=== PATIENT | male | born 1990 | race Caucasian/White ===

== ENCOUNTER 2016-12-18 00:33 | Inpatient (IN) | payer OTHER ==
[~2016-12-18] VITALS: Ht 160 cm; Wt 63.6 kg
[2016-12-18 02:54] VITALS: BP 118/73; PULSE 78; RESP 18; TEMP 97.9; O2SAT 97
[2016-12-18] MEDS ORDERED: ALUMINUM/MAGNESIUM/SIMETH 30 ML CUP PO PRN (03:00)
[2016-12-18] MEDS ORDERED: LORazepam 1 MG TAB PO PRN (03:00)
[2016-12-18] MEDS ORDERED: BENZTROPINE MESYLATE 1 MG TAB PO PRN (03:00)
[2016-12-18] MEDS ORDERED: diphenhydrAMINE HCL 50 MG CAP - HS PRN PO (03:00)
[2016-12-18] MEDS ORDERED: LORazepam 2 MG/ML VIAL IM PRN (03:00)
[2016-12-18] MEDS ORDERED: MAGNESIUM HYDROXIDE SUSP 30 ML CUP PO PRN (03:00)
[2016-12-18] MEDS ORDERED: diphenhydrAMINE HCL 50 MG/ML VIAL - HS PRN IM (03:00)
[2016-12-18] MEDS ORDERED: ACETAMINOPHEN 325 MG TAB PO PRN (03:00)
[2016-12-18] MEDS ORDERED: BENZTROPINE MESYLATE 2 MG/2 ML VIAL IM PRN (03:00)
[2016-12-18 05:24] VITALS: BP 95/53; PULSE 65; RESP 18; TEMP 97.6
--- NOTE | 2016-12-18 13:12 | MH ---
cc: ESTELA GOOD MD DATE OF ADMISSION 12/18/2016 ADMISSION DIAGNOSES 1. Other psychotic disorder, F28. Rule out primary psychotic disorder like schizophrenia or schizoaffective disorder versus mood disorder such as bipolar disorder with psychotic features. LEGAL STATUS The patient is presently capacitated to consent for voluntary psychiatric admission and for medications. HISTORY OF PRESENT ILLNESS Mr. Pasquale Moran is a 26-year-old male with no reported past psychiatric history who presents to us in transfer under a [place] Act from [facility]. Reviewing the records from that hospital, the patient apparently presented there with concerns for paranoia, hallucinations and erratic behavior per his family. The patient was medically cleared and transferred to [facility]. Reviewing our electronic medical record, it appears this is the patient's first visit here. The patient is seen and examined with counselor. Chart reviewed. The case discussed with nurse on the inpatient psychiatric unit. On my examination today, the patient reports that he had onset of psychotic symptoms about four or five days ago with no clear trigger. He says that his sister "looked kind of funny. There is this girl that looks just like my sister. I was looking my sister and she sneezed and there was this red dragon that came out of her." He goes on later to say that he thinks that the red dragon was sort of cologne that might "attract people and you can put it on the skin to protect you." He endorses feelings of control saying "I feel like I am being hypnotized. People were doing stuff to figure out what I am thinking." He endorses poor sleep and trouble with irritability and anger. He says "I just started flipping out." He denies any suicidal or homicidal ideation. He says that he thought he saw his uncle in the backyard a few days, ago but it ended up being tree and he was talking to the tree. He also says that he thought that his backyard was being infiltrated by [employer] agents and drones. The patient is somewhat distractible, but there are no other real hypomanic or manic symptoms evident presently. The patient gives only a tenuous history than might be suggestive of such episodes in the past. No depressive symptoms. The remainder of the psychiatric ROS is negative. PAST PSYCHIATRIC HISTORY The patient denies any history of psychiatric diagnosis. He denies any history of inpatient or outpatient psychiatric treatment. He denies any history of suicide attempts but admits to suicidal ideation in the past. FAMILY HISTORY The patient reports that his cousin has schizophrenia. He also reports that his paternal uncle has alcohol issues. He denies any family history of suicide. CHEMICAL DEPENDENCY HISTORY The patient denies any history of abuse of drugs or alcohol. His toxicology at the outside hospital was negative. SOCIAL HISTORY The patient reports that he lives with his sister and sister's boyfriend. He did provide us with contact information for the sisters boyfriend in order to get a hold of the sister and that contact is Mukund Handy at [phone]. Sisters name is Coral. We did endeavor to call this number with the patient's permission, but no one unanswered. He reports that he is single with no children. Some college education. 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 He denies any legal history. Denies any access to guns or firearms. Denies any history. PAST MEDICAL HISTORY The patient denies any acute medical issues. He does say that he was recently treated with antibiotics for a throat infection. MEDICATIONS The patient reports he takes no medications presently. ALLERGIES NO KNOWN DRUG ALLERGIES. The patient is ALLERGIC TO SEAFOOD AND SHELLFISH. REVIEW OF SYSTEMS No reported headache, vision or hearing changes, chest pain, shortness of breath, bowel or bladder issues. No other somatic complaints. PHYSICAL EXAMINATION VITAL SIGNS: Temperature is 97.6, pulse is 65, respirations 18 and blood pressure is 95/53. Pulse oximetry is 97% on room air. Physical examination was completed at the outside hospital and the patient was medically cleared. On my examination today, the patient appears to be in no acute physical distress. No motoric abnormalities noted. LABORATORY DATA Laboratories from outside hospital reviewed. CBC is significant for mildly elevated hemoglobin at 18.8. CMP is essentially unremarkable. Alcohol level was undetectable. Urinalysis bland. Toxicology negative as I said. MENTAL STATUS EXAM The patient is casually dressed. He is fairly well-groomed. He is awake, alert and oriented to person and hospital at least. No abnormal motor movements noted. Speech is within normal limits for rate, tone and volume. Language and fund of knowledge seem average for age. Mood is described as somewhat irritable and affect is blunted. Thought process fairly linear within delusional system. There are paranoid delusions present and possibly also some degree grandiosity. The patient does describe some recent audiovisual hallucinations as detailed above. He denies any suicidal or homicidal ideation. Insight and judgment are likely fair. ASSESSMENT/PLAN This is a 26-year-old male with psychiatric history as detailed above who presents in transfer from outside hospital under a [place] Act. The patient describes recent onset of primarily psychotic symptoms. There may be some slight degree of mood overlay, but there is not no clear current symptomatology or clear history of natalie or hypomania. I will therefore treat as for psychosis. There is no evidence of substance component. The patient requires psychiatric admission at this time for safety, observation and stabilization. Admit inpatient. Voluntary status. I will initiate a low dose of an antipsychotic to try to manage the patient psychotic symptoms. We will need to obtain collateral to determine if this is the patient's first psychotic break, and if so, we may need to initiate a first break psychosis workup. In the meantime, I will provide Ativan as needed for anxiety, Cogentin as needed for EPS and Benadryl as needed for sleep. Vitals every shift. Counselor to see. Disposition planning. Estimated length of stay: Seven to nine days. Estela ZAMORA /12:09 PM /12:48 PM FATUMA
[2016-12-18] MEDS: risperiDONE 0.5 MG TAB PO SCH (20:42)
[2016-12-19 05:26] VITALS: BP 133/74; PULSE 82; RESP 18; TEMP 97.5; O2SAT 96
[2016-12-19] MEDS: risperiDONE 0.5 MG TAB PO SCH ×2 (08:52→20:25)
--- NOTE | 2016-12-19 17:31 | HHI.PYPN ---
Subjective Remarks Patient was seen and case discussed with nursing. Patient is pleasant and cooperative with exam. Describes bizarre behavior over the past couple of months. Examples include talking to trees, thinking that people outside his door or collaborating a conspiracy.'s, and that a red dragon was coming out of his sister. Thought process is mildly disorganized .He says the auditory hallucinations are gone. Denies paranoia. Denies suicidal ideations intent or plan Objective Alert: Yes [place]: Person, Place, Date, Situation Mood: Calm Affect: Restricted Memory Intact: Immediate Hallucinations: Auditory ("better") Delusions: No Delusion Type: Paranoid Suicidal: Ideation (denies) Homicidal: Ideation (denies) Insight/Judgement Poor Vitals/IOs Vital Signs Date Time Temp Pulse Resp B/P Pulse Ox O2 Delivery O2 Flow Rate FiO2 12/19/16 05:26 97.5 82 18 133/74 96 Intake and Output 12/18/16 12/18/16 12/19/16 08:00 16:00 00:00 Intake Total 480 ml Balance 480 ml Assessment & Plan Problem List: (1) Unspecified psychosis ICD Code: F29 Assessment & Plan Continue current treatment plan Justification for Cont. Inpt. Patient will decompensate in a less restrictive setting Ashok Isidro DO Dec 19, 2016 17:31
[2016-12-19 19:00] VITALS: BP 127/62; PULSE 83; RESP 18; TEMP 97.7; O2SAT 97
[2016-12-19] MEDS: NICOTINE 14 MG/24 HR PATCH TD SCH (20:26)
[2016-12-19] MEDS: REMOVE OLD NICODERM (NICOTINE) PATCH TD SCH (20:38)
[2016-12-20 06:18] VITALS: BP 149/70; PULSE 84; RESP 17; TEMP 98.5; O2SAT 97
[2016-12-20] MEDS: REMOVE OLD NICODERM (NICOTINE) PATCH TD SCH (09:05)
[2016-12-20] MEDS: risperiDONE 0.5 MG TAB PO SCH ×2 (09:05→20:30)
[2016-12-20] MEDS: NICOTINE 14 MG/24 HR PATCH TD SCH (09:05)
--- NOTE | 2016-12-20 16:38 | HHI.PYPN ---
Subjective Remarks Patient was seen and case discussed with nursing. Patient is pleasant and cooperative with exam. Seen interacting with others playing basketball outside. Nursing is noticed an improvement in patient's behavior. Patient denies auditory or visual hallucinations. Compliant with his medications. Denies suicidal ideations intent or plan Objective Alert: Yes [place]: Person, Place, Date, Situation Mood: Calm Affect: Restricted Memory Intact: Immediate Hallucinations: Auditory ("better") Delusions: No Delusion Type: Paranoid Suicidal: Ideation (denies) Homicidal: Ideation (denies) Insight/Judgement Poor Vitals/IOs Vital Signs Date Time Temp Pulse Resp B/P Pulse Ox O2 Delivery O2 Flow Rate FiO2 12/20/16 06:18 98.5 84 17 149/70 97 Assessment & Plan Problem List: (1) Unspecified psychosis ICD Code: F29 Assessment & Plan Continue current treatment plan Justification for Cont. Inpt. Patient will decompensate in a less restrictive setting Ashok Isidro DO Dec 20, 2016 16:38
[2016-12-20 18:26] VITALS: BP 120/60; PULSE 73; RESP 17; TEMP 98.4; O2SAT 98
[2016-12-21 05:49] VITALS: BP 125/69; PULSE 81; RESP 18; TEMP 98.6; O2SAT 98
[2016-12-21] MEDS: risperiDONE 0.5 MG TAB PO SCH (08:30)
[2016-12-21] MEDS: NICOTINE 14 MG/24 HR PATCH TD SCH (08:31)
--- NOTE | 2016-12-21 11:58 | HHI.PYPN ---
Subjective Remarks Patient seen and examined with counselor. Chart reviewed. Case discussed with nursing staff. On my examination today, the patient is in good spirits. He denies any ongoing audiovisual hallucinations. He denies any suicidal or homicidal ideation and notes that he is irritability feels decreased. Denies side effects from medications. Patient is hopeful to return to work once his psychiatric condition is improved. Review of Systems Other No physical complaints today Objective Alert: Yes [place]: Person, Place, Date, Situation Mood: Calm Affect: Euthymic Memory Intact: Comment (seems intact on clinical exam) Hallucinations: Other (denies any audiovisual hallucinations) Delusions: No Delusion Type: Other (no delusional material) Suicidal: Ideation (denies suicidal ideation) Homicidal: Ideation (denies homicidal ideation) Insight/Judgement Fair Remarks Thought process logical and linear. Speech within normal limits for rate, tone and volume. Labs Labs reviewed. No new labs. Vitals/IOs Vital Signs Date Time Temp Pulse Resp B/P Pulse Ox O2 Delivery O2 Flow Rate FiO2 12/21/16 05:49 98.6 81 18 125/69 98 Assessment & Plan Problem List: (1) Other psychotic disorder not due to a substance or known physiological condition ICD Code: F28 Assessment & Plan Titrate Risperdal to bring patient to a dose more likely to be therapeutic in the long run. Continue other medications and care as ordered. Justification for Cont. Inpt. Medication changes Discharge Planning Monitor overnight. Possible discharge tomorrow. Request HC Surrog/Guard Advoc?: No Shaggy Montiel MD Dec 21, 2016 11:58
[2016-12-21 18:44] VITALS: BP 124/78; PULSE 87; RESP 18; TEMP 98.5; O2SAT 97
[2016-12-21] MEDS: risperiDONE 1 MG TAB PO SCH (20:15)
[2016-12-21] MEDS: REMOVE OLD NICODERM (NICOTINE) PATCH TD SCH (20:25)
[2016-12-22 05:39] VITALS: BP 120/58; PULSE 80; RESP 16; TEMP 97.6; O2SAT 97
[2016-12-22] MEDS: NICOTINE 14 MG/24 HR PATCH TD SCH (09:00)
[2016-12-22] MEDS: REMOVE OLD NICODERM (NICOTINE) PATCH TD SCH (09:25)
[2016-12-22] MEDS: risperiDONE 1 MG TAB PO SCH (09:25)
[2016-12-22] MEDS ORDERED: RISP1 PO ×2 (09:59→11:37)
--- NOTE | 2016-12-22 10:00 | HHI.DS ---
Psychiatry Discharge Summary Inpatient Psychiatric care?: Yes Advance Directive: No Reason Not Provided: Due to Patient Condition Mental Health AdvanceDirective: No Health Care Proxy: No Admission Admission Date Dec 18, 2016 at 02:20 Admission Diagnosis: (1) Other psychotic disorder not due to a substance or known physiological condition ICD Code: F28 Brief History Mr. Pasquale Moran is a 26-year-old male with no reported past psychiatric history who presents to us in transfer under a [place] Act from [facility]. Reviewing the records from that hospital, the patient apparently presented there with concerns for paranoia, hallucinations and erratic behavior per his family. The patient was medically cleared and transferred to [place]. Reviewing our electronic medical record, it appears this is the patient's first visit here. The patient is seen and examined with counselor. Chart reviewed. The case discussed with nurse on the inpatient psychiatric unit. On my examination today, the patient reports that he had onset of psychotic symptoms about four or five days ago with no clear trigger. He says that his sister "looked kind of funny. There is this girl that looks just like my sister. I was looking my sister and she sneezed and there was this red dragon that came out of her." He goes on later to say that he thinks that the red dragon was sort of cologne that might "attract people and you can put it on the skin to protect you." He endorses feelings of control saying "I feel like I am being hypnotized. People were doing stuff to figure out what I am thinking." He endorses poor sleep and trouble with irritability and anger. He says "I just started flipping out." He denies any suicidal or homicidal ideation. He says that he thought he saw his uncle in the backyard a few days, ago but it ended up being tree and he was talking to the tree. He also says that he thought that his backyard was being infiltrated by [employer] agents and drones. The patient is somewhat distractible, but there are no other real hypomanic or manic symptoms evident presently. The patient gives only a tenuous history than might be suggestive of such episodes in the past. No depressive symptoms. The remainder of the psychiatric ROS is negative. Tobacco Use In Past 30 Days: Cigarettes But Not Daily Alcohol Use: Monthly or Less Hospital Course Patient was admitted to a locked, inpatient psychiatric unit. Appropriate precautions were in place throughout patient's hospital stay. Patient was seen and examined daily on the unit by psychiatry and also visited by counselor. Medications were adjusted. Patient tolerated medications well without side effects. Patient had improvement in his presenting psychiatric symptomatology and in particular improvement in his psychosis during the course of his hospital stay. There was no evidence of any suicidal or homicidal behavior on the inpatient psychiatric unit. Patient remained in good behavioral control generally and was medication compliant. On the day of discharge: Pt seen and examined in treatment team with RN, counselor and OT. Chart reviewed. Case discussed in treatment team. Per nursing staff, patient has been in good behavioral control and attending to basic needs. On my examination today, the patient is in good spirits. He requests discharge from the inpatient psychiatric unit. He is future oriented and anticipates looking for work in the near future. He denies any suicidal or homicidal ideation. No audiovisual hallucinations. I can elicit no delusional beliefs at this time. He denies side effects from medications. I do review the common and significant side effects of Risperdal including but not limited to sedation, increased blood sugar or cholesterol, weight gain, EPS and other movement side effects, gynecomastia. I did offer the patient long-acting injectable antipsychotic but he declined. He has no physical complaints today. 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 His level of function is adequate for outpatient care. Patient will be discharged today in stable condition with psychiatric follow-up as arranged by counselor. Patient is also to follow-up with primary care. I have counseled the patient regarding warning signs for need to return to the psychiatric emergency room as part of a general safety plan. Results Blood Pressure 120 / 58 Vital Signs Date Time Temp Pulse Resp B/P Pulse Ox O2 Delivery O2 Flow Rate FiO2 12/22/16 05:39 97.6 80 16 120/58 97 Laboratories were performed at outside hospital prior to transfer here. Please see my H&P. Summary of Procedures None done Imaging None done Pending results at discharge: No Medications # of Antipsychotic meds at D/C: 1 Approp Antipsych med options 1 - Minimum of three failed multiple trials of monotherapy. 2 - Documented plan to taper to monotherapy due to previous use of multiple meds OR cross-taper in progress at D/C. 3 - Documentation of augmentation of Clozapine. 4 - Justification other than those listed in allowable values 1-3, document here : Discharge Discharge Date: Dec 22, 2016 Discharge Diagnosis: (1) Other psychotic disorder not due to a substance or known physiological condition Diagnosis: Principal (Stabilized) ICD Code: F28 GAF on discharge is 60. Mental Status Exam at Disch Patient is casually dressed. He is well groomed. He is awake and alert and oriented 3. No abnormal motor movements noted. No hand tremor, no dystonia, no dyskinesia noted. Steady gait and station. Speech is within normal limits for rate, tone and volume. Language and fund of knowledge seem approximately average for age. Mood is good and affect is full and reactive. Thought process linear. No loosening of associations. No evident delusions. No audiovisual hallucinations. Denies suicidal or homicidal ideation. Insight and judgment are fair. Pt Condition on Discharge: Stable Discharge Disposition: Discharge Home Discharge Instructions Diet Instructions: As Tolerated, No Restrictions Activities you can perform: Weight Bearing as [place] Scheduled Appointment: Hardik Brennan Appointment Date: Dec 29, 2016 Appointment Time: 7:30am New Medications: Risperidone (Risperdal) 1 Mg Tab 1 MG PO BID Mental Health Days 15 Ref 1 TAB Discharge Time <= 30 minutes Discharge/Advance Care Plan Health Problems: (1) Other psychotic disorder not due to a substance or known physiological condition Goals to promote your health * To prevent worsening of your condition and complications * To maintain your health at the optimal level Directions to meet your goals Take your medications as prescribed Follow your dietary instruction Follow activity as directed Keep your appointments as scheduled Take your immunizations and boosters as scheduled If your symptoms worsen call your PCP, if no PCP go to Urgent Care Center or Emergency Room For 14/06 questions related to your inpatient stay or results of tests pending at discharge, please contact Dr. Shaggy Montiel at Smoking is Dangerous to Your Health. Avoid second hand smoking Shaggy Montiel MD Dec 22, 2016 10:00
== END 2016-12-22 17:15 | disposition home or self-care (01) | DRG 885 ==
LOC: H270 02:20
PROVIDERS: ADMIT Psychiatry & Neurology Psychiatry; ATTEND Psychiatry & Neurology Psychiatry
DX: F28 Other psychotic disorder not due to a substance or known physiological condition (principal); Z72.0 Tobacco use

== ENCOUNTER 2017-06-12 02:25 | Inpatient (IN) | payer OTHER ==
[~2017-06-12] VITALS: Ht 162.6 cm; Wt 60.4 kg
[~2017-06-12 02:25] MED LIST: RISP1 PO
[2017-06-12 02:38] VITALS: BP 133/74; PULSE 80; RESP 16; TEMP 98.1; O2SAT 100
[2017-06-12 03:16] LABS: BICARBONATE 22.2 MEQ/L (21.0-32.0); POTASSIUM 4.1 MEQ/L (3.5-5.1)
--- NOTE | 2017-06-12 03:48 | PD ---
HPI Chief Complaint: Psychiatric Symptoms Time Seen by Provider: 03:47 Travel History International Travel<30 days: No Contact w/Intl Traveler<30days: No Traveled to known affect area: No History of Present Illness HPI Patient transferred from [place] for psychiatric evaluation. Patient initially seen and evaluated there was medically cleared although creatinine was not rechecked prior to transfer after receiving 2 L normal saline. Patient denies any complaints or concerns. Denies any pain anywhere. Denies any homicidal or suicidal ideations. Denies any chest pain, shortness of breath, fevers, nausea , vomiting, abdominal pain, or generalized body aches. PFSH Past Medical History Asthma: Yes Psychiatric: No Social History Alcohol Use: Yes (OCC) Tobacco Use: Yes (OCC) Substance Use: Yes (MARIJUANA) Allergies-Medications (Allergen,Severity, Reaction): Coded Allergies: Seafood (Verified Allergy, Severe, 06/11/17) PER PATIENT Shellfish (Verified Allergy, Severe, 06/11/17) PER PATIENT Reported Meds & Prescriptions Reported Meds & Active Scripts Active No Active Prescriptions or Reported Medications Review of Systems Except as stated in HPI: all other systems reviewed are Neg Physical Exam Narrative GENERAL: Well-developed, well nourished, in no acute distress, and non-ill appearing. SKIN: Focused skin assessment warm and dry. HEAD: Atraumatic. Normocephalic. EYES: Pupils equal and round. EOMI. No scleral icterus. No injection or drainage. ENT: No nasal bleeding or discharge. Mucous membranes pink and moist. NECK: Trachea midline. Supple. No nuclear rigidity. CARDIOVASCULAR: Regular rate and rhythm. No murmur appreciated. RESPIRATORY: No accessory muscle use. No respiratory distress. Clear to auscultation. Breath sounds equal bilaterally. MUSCULOSKELETAL: No obvious deformities. No clubbing. No cyanosis. No edema. Full range of motion. NEUROLOGICAL: Awake and alert. No obvious cranial nerve deficits. Motor grossly within normal limits. Normal speech. PSYCHIATRIC: Appropriate mood and affect; insight and judgment normal. Data Data Last Documented VS Vital Signs Date Time Temp Pulse Resp B/P Pulse Ox O2 Delivery O2 Flow Rate FiO2 06/12/17 02:42 16 06/12/17 02:38 98.1 80 133/74 100 Room Air Orders Basic Metabolic Panel (Bmp) (06/12/17 02:44) Psych Screen (06/12/17 03:27) Labs Laboratory Tests Test 06/12/17 02:45 Sodium Level 145 MEQ/L Potassium Level 4.1 MEQ/L Chloride Level 114 MEQ/L Carbon Dioxide Level 22.2 MEQ/L Anion Gap 9 MEQ/L Blood Urea Nitrogen 17 MG/DL Creatinine 0.95 MG/DL Estimat Glomerular Filtration 95 ML/MIN Rate Random Glucose 81 MG/DL Calcium Level 7.6 MG/DL MDM Medical Decision Making Medical Screen Exam Complete: Yes Emergency Medical Condition: Yes Differential Diagnosis Homicidal, suicidal, dehydration, electrolyte abnormality, other Narrative Course Patient was seen and examined. Labs were obtained and reviewed. Patient medically cleared for further treatment and evaluation by psych. Final disposition per psych. Diagnosis Primary Impression: Dehydration Additional Impression: Medical clearance for psychiatric admission Scripts No Active Prescriptions or Reported Meds Condition: Stable Godwin Guerrier Jun 12, 2017 03:48
[2017-06-12 07:00] VITALS: BP 122/72; PULSE 77; RESP 16; TEMP 98; O2SAT 99
[2017-06-12] MEDS ORDERED: MAGNESIUM HYDROXIDE SUSP 30 ML CUP PO PRN (07:45)
[2017-06-12] MEDS ORDERED: LORazepam 2 MG/ML VIAL IM PRN ×2 (07:45)
[2017-06-12] MEDS ORDERED: ALUMINUM/MAGNESIUM/SIMETH 30 ML CUP PO PRN (07:45)
[2017-06-12] MEDS ORDERED: LORazepam 1 MG TAB PO PRN (07:45)
[2017-06-12] MEDS ORDERED: LORazepam 0.5 MG TAB PO PRN (07:45)
[2017-06-12 09:15] VITALS: BP 124/78
[2017-06-12 10:29] VITALS: BP 143/76; PULSE 93; RESP 19; TEMP 98.5; O2SAT 98
--- NOTE | 2017-06-12 11:07 | HHI.HP ---
Provisional Diagnosis Admission Date Jun 12, 2017 at 07:45 Certification of Person's Competence To Provide Express and Informed Consent I have personally examined Vern Morataya , a person being served at [facility] on, Jun 12, 2017 10:43. Express and informed consent means consent voluntarily given in writing, by a competent person, after sufficient explanation and disclosure of the subject matter involved to enable the person to make a knowing and willful decision without any element of force, fraud, deceit, duress, or other form of constraint or coercion. This person is 18 years of age or older, is not now known to be incompetent to consent to treatment with a guardian advocate, and does not have a health care surrogate or proxy currently making medical treatment decisions. I have found this person to be one of the following: [X] Competent to provide express and informed consent, as defined above, for voluntary admission to this facility and is competent to provide express and informed consent for treatment. He/she has the consistent capacity to make well reasoned, willful, and knowing decisions concerning his or her medical or mental health treatment. The person fully and consistently understands the purpose of the admission for examination/placement and is fully capable of personally exercising all rights assured under [place] Incompetent to provide express and informed consent to voluntary admission, and this is incompetent to provide express and informed consent to treatment. The person must be transferred to involuntary status and a petition for a guardian advocate filed with the Circuit Court. [] Refusing to provide express and informed consent to voluntary admission but is competent to provide express and informed consent for treatment. The person must be discharged or transferred to involuntary status. Form shall be completed within 24 hours of a person's arrival at the receiving facility and filed in the clinical record of each person: 1. Admitted on a voluntary basis 2. Permitted to provide express and informed consent to his/her own treatment 3. Allowed to transfer from involuntary to voluntary status 4. Prior to permitting a person to consent to his or her own treatment after having been previously found incompetent to consent to treatment. History of Present Illness Capacity: Has Capacity HPI The patient is a 27-year-old man, domiciled his sister, unemployed, with psychiatric history of unspecified psychosis, and of his use disorder, 1 previous psychiatric hospitalization here at [place] in November 2016 under the care of Dr. Montiel, documentation was reviewed, was discharged in [facility] and a plan for outpatient follow-up, but the patient did not follow-up and he did not take the medication, no previous suicidal attempts, no history of self cutting, he has family psychiatric history of bipolar in his mother and his schizophrenia and his grandmother, medical history of asthma, who was brought to the ER in [place] by his sister due to erratic and disorganized behavior in the last 2 days. As per collateral information obtained this morning form sister , Coral Morataya, , since the patient was discharged in November he decided to stop taking his medications stating that he was not himself on medications. In the last months patient has been partially functional in the society, isolated, acting odd at times, but mostly at baseline. However 2 days ago when she arrived home she found him walking inside the house and he stated that he was feeling very rare. She says that he was very confused, detached from the reality, he was not able to recognize her or to recognize the house and after that he has been talking nonsense, not sleeping, very erratic. She clarifies that he might smoke marijuana, but she is unaware if he is using other drugs, but she doesn't think so. On psychiatric evaluation the patient is found in the ER, his is sleeping, but easily arousable. Patient says that he is here because his family wants to kill him. He says that his brother-in- law is evil "he is of demon, but I am the reincarnation of Prince Pacheco so we cannot live together". When patient is asked if he had used any drugs, he says "brother my drug is the Bible, I read the Bible 24 hours a day, because Prince Pacheco is the only salvation"and as he says this he starts crying. Patient also saying that the reason he is in the hospital "is because I have been , but nobody Know and I just want to confirm". During the evaluation patient often become agitated and loud, but he is verbally escalated. Other than pronounced loosening of associations, frequent derailment, and nihilistic delusions, he is visibly internally preoccupied and paranoid. He denies visual and auditory hallucinations, he denies suicidal and homicidal ideation. Patient is partially oriented in time and place. He reports almost daily use of marijuana, denies cocaine, alcohol, and other drugs. Review of Systems Constitutional: DENIES: Diaphoretic episodes, Fatigue, Fever, Weight gain, Weight loss, Chills, Dizziness, Change in appetite, Night Sweats Endocrine: DENIES: Heat/cold intolerance, Polydipsia, Polyuria, Polyphagia Eyes: DENIES: Blurred vision, Diplopia, Eye inflammation, Eye pain, Vision loss , Photosensitivity, Double Vision Ears, nose, mouth, throat: DENIES: Tinnitus, Hearing loss, Vertigo, Nasal discharge, Oral lesions, Throat pain, Hoarseness, Ear Pain, Running Nose, Epistaxis, Sinus Pain, Toothache, Odynophagia Respiratory: DENIES: Apneas, Cough, Snoring, Wheezing, Hemoptysis, Sputum production, Shortness of breath Cardiovascular: DENIES: Chest pain, Palpitations, Syncope, Dyspnea on Exertion , PND, Lower Extremity Edema, Orthopnea, Claudication Gastrointestinal: DENIES: Abdominal pain, Black stools, Bloody stools, Constipation, Diarrhea, Nausea, Vomiting, Difficulty Swallowing, Anorexia Musculoskeletal: DENIES: Joint pain, Muscle aches, Stiffness, Joint Swelling, Back pain, Neck pain Integumentary: DENIES: Abnormal pigmentation, Nail changes, Pruritus, Rash Hematologic/lymphatic: DENIES: Bruising, Lymphadenopathy Immunologic/allergic: DENIES: Eczema, Urticaria Neurologic: DENIES: Abnormal gait, Headache, Localized weakness, Paresthesias, Seizures, Speech Problems, Tremor, Poor Balance Psychiatric: COMPLAINS OF: Confusion, Hallucinations, Delusions, DENIES: Anxiety, Mood changes, Depression, Agitation, Suicidal Ideation, Homicidal Ideation Past Psych History Violence risk - others (6 mos) Elevated Violence risk - self (6 mos) Elevated Substance Abuse History Drugs/Alcohol past 12 months Patient reports daily use of marijuana Past Family Social History Coded Allergies: Seafood (Verified Allergy, Severe, 06/11/17) PER PATIENT Shellfish (Verified Allergy, Severe, 06/11/17) PER PATIENT Discontinued Scripts Risperidone (Risperdal)1 Mg Tab1 Mg PO BID 15 Days Ref 1 Prov:Shaggy Montiel MD 12/22/16 Current Medications Medications (Trade) Dose Ordered Sig/Annelise Route Start Time Stop Time Status Last Admin (Ativan) 1 mg Q6H PRN PO 06/12/17 07:45 (Ativan Inj) 1 mg Q6H PRN IM 06/12/17 07:45 (Tylenol) 650 mg Q4H PRN PO 06/12/17 07:45 (Milk Of Magnesia Liq) 30 ml DAILY PRN PO 06/12/17 07:45 (Mag-Al Plus Susp Liq) 30 ml Q6H PRN PO 06/12/17 07:45 (Habitrol 21 Mg Patch.24 Hr) 1 patch DAILY T-DERMAL 06/12/17 09:00 (risperDAL) 1 mg Q12HR PO 06/12/17 09:00 Miscellaneous Information 1 HS T-DERMAL 06/12/17 21:00 Family History Patient's father and grandmother a schizophrenic and bipolar respectively Social History Patient was born and raised in [place], family from [place], he lives in [place] with sister and sister's , single, unemployed, he has some college credits Patient's Strengths (min. 2) Family support Physical Exam Physical examination the patient was not presenting any EPS, no tremors, no psychomotor agitation or retardation, no gait disturbance, no weakness, no stiffness Vital Signs Vital Signs Date Time Temp Pulse Resp B/P Pulse Ox O2 Delivery O2 Flow Rate FiO2 06/12/17 10:29 98.5 93 19 143/76 98 06/12/17 07:00 Room Air Mental Status Examination Appearance Young man, age appearing, good hygiene, superficially cooperative, guarded Speech: Rapid, Tangential Orientation: Person, Place Memory: Impaired (describe) Thought Process: Flight of Ideas, Loose Association, Tangential Thought Content: Depersonal, Bizarre thinking, Paranoid, Ideas of Reference Language Patient make an appropriate use of language Fund of Knowledge Patient notes who was the presidential support specialist Hallucination Type: None Attention and Concentration: Good Suicidal Ideation: No Previous Suicide Attempts: No Homicidal Ideation: No Previous Homicide Attempts: No Insight: Poor Affect: Irritable Affect if Inappropriate: Labile Mood: Irritable Motor Activity: Normal gait Assessment & Plan Problem List: (1) Other psychotic disorder not due to a substance or known physiological condition Assessment & Plan: On psychiatric evaluation today patient has a pronounced impaired reality testing, disorganized and delusional thinking, loosening of associations, frequent derailment, word salad at times of marked paranoia. As per sister current presentation is started with this level of severity 2 days ago. Patient has a psychiatric history of psychosis, he has not been taking his medications, use of drugs is suspected, even though toxicology is just positive for cannabis. Due to the acuity of psychosis and the loss of ego boundaries patient represents an acute danger to self and others and needs psychiatric admission for stabilization. Patient is willing to sign voluntary admission admitting that he is not himself right now. Since the patient has elevated white blood cells, WBC 16, patient will be admitted in the med psych unit to continue psychiatric care and investigation of a potential underlying social of infection. At this moment as etiology of psychosis is unclear, schizophrenia is possible, but has to rule out carefully drug-induced and medically induced psychosis. We'll start Risperdal 1 mg twice a day. Extensive support, motivation and psychoeducation provided. pest control worker intervention for psychosocial assessment, collateral information, individual and group therapy, coordination of safe discharge plan. Will consult medicine to continue medical care. ICD Code: F28 Assessment & Plan Estimated LOS: days Daron Espinoza MD Jun 12, 2017 11:07
[2017-06-12] MEDS: NICOTINE 21 MG/24 HR PATCH T-DERMAL SCH (11:22)
[2017-06-12] MEDS: risperiDONE 1 MG TAB PO SCH ×2 (13:26→20:18)
--- NOTE | 2017-06-12 13:36 | PD.CONS ---
HPI Service [facility] Hospitalists Consult Requested By Psychiatric team Reason for Consult Elevated WBC Primary Care Physician No Primary Care Physician Diagnoses: History of Present Illness Written by Kala Avila, acting as scribe for Dr. Dobson on 06/12/17 at 13:17. This a 27-year-old male patient who denies prior medical history. Patient has rapid pressure tangential stuttered speech- is un unreliable historian. Information gathered from patient as was prior computerized charting. Patient has had prior psychiatric admission she was started on Risperdal per patient's history is not been taking this medication. It appears that over the past 2 days patient has become increasingly confused with erratic behavior. Patient was brought to [facility], admitted to inpatient psychiatric center we have been consulted for assistance with medical management of elevated white blood cell count. Patient denies shortness of breath, cough, fevers, chills, nausea, vomiting, diarrhea, constipation or dysuria. Patient does report he has had increased appetite over the past 2 days. Patient also reports he has been unable to pass urine due to dehydration. 06/11/2017 initial white blood cell count 09/10/19 was 20 1. 9 repeat after fluids were given 16.4 Patient is afebrile Review of Systems ROS Limitations: Poor Historian Except as stated in HPI: all other systems reviewed are Neg Past Family Social History Allergies: Coded Allergies: Seafood (Verified Allergy, Severe, 06/11/17) PER PATIENT Shellfish (Verified Allergy, Severe, 06/11/17) PER PATIENT Past Medical History denies prior medical history including hypertension and CAD degrees mellitus or asthma Past Surgical History [place] teeth extracted Reported Medications No Active Prescriptions or Reported Medications Active Ordered Medications Current Medications Medications (Trade) Dose Ordered Sig/Annelise Route Start Time Stop Time Status Last Admin (Ativan) 1 mg Q6H PRN PO 06/12/17 07:45 (Ativan Inj) 1 mg Q6H PRN IM 06/12/17 07:45 (Tylenol) 650 mg Q4H PRN PO 06/12/17 07:45 (Milk Of Magnesia Liq) 30 ml DAILY PRN PO 06/12/17 07:45 (Mag-Al Plus Susp Liq) 30 ml Q6H PRN PO 06/12/17 07:45 (Habitrol 21 Mg Patch.24 Hr) 1 patch DAILY T-DERMAL 06/12/17 09:00 06/12/17 11:22 (risperDAL) 1 mg Q12HR PO 06/12/17 09:00 Miscellaneous Information 1 HS T-DERMAL 06/12/17 21:00 Family History Patient's father has schizophrenia Grandmother has bipolar Patient also reports diabetes mellitus runs in his family Social History Denies EtOH use Admits to tobacco use daily Admits to marijuana use daily denies other illicit substance use Physical Exam Vital Signs Vital Signs Date Time Temp Pulse Resp B/P Pulse Ox O2 Delivery O2 Flow Rate FiO2 06/12/17 10:29 98.5 93 19 143/76 98 06/12/17 09:15 74 16 124/78 99 06/12/17 07:00 98.0 77 16 122/72 99 Room Air 06/12/17 02:42 16 06/12/17 02:38 98.1 80 16 133/74 100 Room Air Physical Exam GENERAL: This is a well-nourished, well-developed patient with rapid pressure stuttered speech SKIN: No rashes, ecchymoses or lesions. Cool and dry. HEAD: Atraumatic. Normocephalic. No temporal or scalp tenderness. EYES: Extraocular motions intact. No scleral icterus. No injection or drainage. CARDIOVASCULAR: Regular rate and rhythm RESPIRATORY: Clear to auscultation. Breath sounds equal bilaterally. No wheezes , rales, or rhonchi. GASTROINTESTINAL: Abdomen soft, non-tender, nondistended. No guarding. MUSCULOSKELETAL: Extremities without clubbing, cyanosis, or edema. No joint tenderness, effusion, or edema noted. No calf tenderness. Negative Homans sign bilaterally. NEUROLOGICAL: Awake and alert. No focal deficits. Motor and sensory grossly within normal limits. Five out of 5 muscle strength in all muscle groups. Normal speech. Laboratory Laboratory Tests Test 06/12/17 02:45 Sodium Level 145 Potassium Level 4.1 Chloride Level 114 Carbon Dioxide Level 22.2 Anion Gap 9 Blood Urea Nitrogen 17 Creatinine 0.95 Estimat Glomerular Filtration 95 Rate Random Glucose 81 Calcium Level 7.6 Result Diagram: 06/12/17 024 Assessment and Plan Problem List: (1) Leukocytosis, unspecified ICD Code: D72.829 Status: Acute (2) Unspecified psychosis ICD Code: F29 Status: Acute Assessment and Plan This a 27-year-old male patient who denies prior medical history. Patient has rapid pressure tangential stuttered speech- is un unreliable historian. Over the past 2 days patient has become increasingly confused with erratic behavior. 06/11/2017 initial white blood cell count 09/10/19 was 20 1. 9 repeat after fluids were given 16.4 Psychosis not otherwise specified management per psychiatric team Leukocytosis improving Encourage by mouth hydration Recheck CBC in a.m. UA reviewed negative leukocyte esterase No evidence of infectious source at this time likely secondary to dehydration /substance abuse Substance abuse- patient next to smoking marijuana daily, concerned freeze other illicit substances Patient counseled encouraged to abstain Continue to monitor DVT prophylaxis patient is ambulatory and low risk Discussed with patient and nursing and Dr. Espinoza This note was transcribed by scribe [Kala Avila]. I, Dr. Cuong Dobson personally performed the history, physical exam, and medical decision making; and confirmed the accuracy of the information in the transcribed note. Authenticated by Dr. Cuong Dobson on 06/12/17 at 1320. Kala Avila Jun 12, 2017 13:36 Cuong Dobson MD Jun 13, 2017 10:06
[2017-06-12 15:04] VITALS: BP 158/83; PULSE 112; RESP 18; O2SAT 98
[2017-06-12 18:06] VITALS: BP 143/66; PULSE 112; RESP 18; TEMP 98.7; O2SAT 98
[2017-06-12] MEDS: REMOVE OLD NICODERM (NICOTINE) PATCH T-DERMAL SCH (20:19)
[2017-06-12] MEDS: ACETAMINOPHEN 325 MG TAB PO PRN (21:08)
[2017-06-13 05:14] VITALS: BP 106/55; PULSE 73; RESP 16; TEMP 97.8; O2SAT 99
[2017-06-13] MEDS: risperiDONE 1 MG TAB PO SCH ×2 (09:00→21:08)
[2017-06-13] MEDS: NICOTINE 21 MG/24 HR PATCH T-DERMAL SCH (09:00)
[2017-06-13 12:25] LABS: AUTOMATED NEUTROPHIL # 6.1 TH/MM3 (1.8-7.7); BASOPHIL # 0.1 TH/MM3 (0-0.2); BASOPHIL % 0.6 % (0.0-2.0); EOSINOPHIL # 0.1 TH/MM3 (0-0.4); EOSINOPHIL % 1.2 % (0.0-4.0); HEMATOCRIT 46.7 % (39.0-51.0); HEMO FLAGS DIFF FINAL; LYMPH % 22.1 % (9.0-44.0); MEAN CELL VOLUME 93.4 FL (80.0-100.0); MEAN CORPUSCULAR HEMOGLOBIN 31.6 PG (27.0-34.0); MEAN CORPUSCULAR HGB CONC 33.8 % (32.0-36.0); MONO % 7.4 % (0.0-8.0); NEUT % 68.7 % (16.0-70.0); PLATELET COUNT 196 TH/MM3 (150-450); RED CELL DISTRIBUTION WIDTH 12.4 % (11.6-17.2); WHITE BLOOD COUNT 8.8 TH/MM3 (4.0-11.0)
--- NOTE | 2017-06-13 12:27 | HHI.PR ---
Subjective Remarks Follow up: Leukocytosis Patient calmer today A&O x3 Requesting IV hep lock be removed. Offers no specific medical complaints at this Patient denies shortness of breath, chest pain, N/V/D/C, fevers or chills. Objective Vitals Vital Signs Date Time Temp Pulse Resp B/P Pulse Ox O2 Delivery O2 Flow Rate FiO2 06/13/17 05:14 97.8 73 16 106/55 99 06/12/17 18:06 98.7 112 18 143/66 98 06/12/17 15:04 112 18 158/83 98 I/O 06/12/17 06/12/17 06/12/17 06/13/17 06/13/17 06/13/17 07:00 15:00 23:00 07:00 15:00 23:00 Intake Total 1560 ml 360 ml Balance 1560 ml 360 ml Intake Oral 1560 ml 360 ml # Voids 1 1 Result Diagram: 06/12/17 0245 Objective Remarks GENERAL: This is a well-nourished, well-developed, in no acute distress at this time SKIN: No rashes, ecchymoses or lesions. Cool and dry. HEAD: Atraumatic. Normocephalic. No temporal or scalp tenderness. EYES: Extraocular motions intact. No scleral icterus. No injection or drainage. CARDIOVASCULAR: Regular rate and rhythm RESPIRATORY: Clear to auscultation. Breath sounds equal bilaterally. No wheezes , rales, or rhonchi. GASTROINTESTINAL: Abdomen soft, non-tender, nondistended. No guarding. MUSCULOSKELETAL: Extremities without clubbing, cyanosis, or edema. No joint tenderness, effusion, or edema noted. No calf tenderness. Negative Homans sign bilaterally. NEUROLOGICAL: Awake and alert. No focal deficits. Motor and sensory grossly within normal limits. Five out of 5 muscle strength in all muscle groups. Normal speech. A/P Problem List: (1) Leukocytosis, unspecified ICD Code: D72.829 Status: Acute (2) Unspecified psychosis ICD Code: F29 Status: Acute Assessment and Plan This a 27-year-old male patient who denies prior medical history. Patient has rapid pressure tangential stuttered speech- is un unreliable historian. Over the past 2 days patient has become increasingly confused with erratic behavior. 06/11/2017 initial white blood cell count 09/10/19 was 20 1. 9 repeat after fluids were given 16.4 Psychosis not otherwise specified management per psychiatric team Leukocytosis improving Encourage by mouth hydration Recheck CBC pending UA reviewed negative leukocyte esterase No evidence of infectious source at this time likely secondary to dehydration /substance abuse Substance abuse- patient next to smoking marijuana daily, concerned freeze other illicit substances Patient counseled encouraged to abstain DVT prophylaxis patient is ambulatory and low risk Discussed with Dr. oDbson, patient and nursing If repeat WBC on pending labs improved will medically clear patient. WBC 8.8 on repeat CBC. Patient medically stable. From medical standpoint patient may se transferred to psych floor or DC. Kala Avila Jun 13, 2017 12:27
[2017-06-13 13:04] LABS: HEMOGLOBIN A1a 0.7 %; HEMOGLOBIN A1b 1.4 %; HEMOGLOBIN P3 3.2 %
[2017-06-13 13:11] LABS: ANION GAP 7 MEQ/L (5-15); BICARBONATE 26.4 MEQ/L (21.0-32.0); BLOOD UREA NITROGEN 16 MG/DL (7-18); CHLORIDE 107 MEQ/L (98-107); GLOMERULAR FILTRATION RATE 89 ML/MIN (>89); HDL CHOLESTEROL 37.8 MG/DL (40.0-60.0); LDL CHOLESTEROL 67 MG/DL (0-99); POTASSIUM 3.8 MEQ/L (3.5-5.1); SODIUM (NA) 140 MEQ/L (136-145)
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
[2017-06-13] MEDS: ACETAMINOPHEN 325 MG TAB PO PRN ×2 (17:21→19:46)
[2017-06-13 18:00] VITALS: BP 146/80; PULSE 108; RESP 17; TEMP 97.8; O2SAT 96
[2017-06-13] MEDS: REMOVE OLD NICODERM (NICOTINE) PATCH T-DERMAL SCH (21:00)
[2017-06-14 05:35] VITALS: BP 113/61; PULSE 73; RESP 16; TEMP 97.7; O2SAT 99
[2017-06-14] MEDS: risperiDONE 1 MG TAB PO SCH ×2 (08:18→21:54)
[2017-06-14] MEDS: NICOTINE 21 MG/24 HR PATCH T-DERMAL SCH (08:19)
--- NOTE | 2017-06-14 15:38 | HHI.PYPN ---
Subjective Remarks Patient seen by me with nurse Clarice. Chart review, patient compliant medication Patient in his room with covers to his chin. It appears quite vigilant and guarded. Free reluctant to respond to any questions. There is some thought blocking also noted as if he is responding to internal stimuli Review of Systems Except as stated in HPI: all other systems reviewed are Neg Objective Alert: Yes [place]: Person, Place, Date, Situation Mood: Calm Affect: Flat Memory Intact: Recent, Remote Hallucinations: Other (no hallucinations) Delusions: Yes Delusion Type: Paranoid Suicidal: Ideation (no SI) Homicidal: Ideation (no HI) Insight/Judgment Very poor Vitals/IOs Vital Signs Date Time Temp Pulse Resp B/P Pulse Ox O2 Delivery O2 Flow Rate FiO2 06/14/17 05:35 97.7 73 16 113/61 99 06/12/17 07:00 Room Air Intake and Output 06/13/17 06/13/17 06/13/17 07:59 15:59 23:59 Intake Total 1440 ml 480 ml Balance 1440 ml 480 ml Assessment & Plan Problem List: (1) Other psychotic disorder not due to a substance or known physiological condition ICD Code: F28 Assessment & Plan Estimated LOS: days patient continues quite psychotic delusional paranoid. For now continue treatment Justification for Cont. Inpt. At this time patient will decompensate if placed in a lower level of care Discharge Planning To be determined Damon Hernandez MD Jun 14, 2017 15:38
[2017-06-14 15:53] VITALS: BP 114/57; PULSE 95; RESP 18; TEMP 98.1; O2SAT 100
[2017-06-14 18:00] VITALS: BP 114/57; PULSE 95; RESP 18; TEMP 98.1; O2SAT 100
[2017-06-14] MEDS: REMOVE OLD NICODERM (NICOTINE) PATCH T-DERMAL SCH (21:00)
[2017-06-15 06:05] VITALS: BP 119/58; PULSE 83; RESP 16; TEMP 98; O2SAT 97
[2017-06-15] MEDS: risperiDONE 1 MG TAB PO SCH (09:17)
[2017-06-15] MEDS: NICOTINE 21 MG/24 HR PATCH T-DERMAL SCH (09:18)
[2017-06-15] MEDS ORDERED: RISP1 PO (15:36)
--- NOTE | 2017-06-15 15:42 | HHI.DS ---
Psychiatry Discharge Summary Inpatient Psychiatric care?: Yes Advance Directive: No Reason Not Provided: patient cannot concentrate Mental Health AdvanceDirective: No Health Care Proxy: No Admission Admission Date Jun 12, 2017 at 07:45 Admission Diagnosis: (1) Other psychotic disorder not due to a substance or known physiological condition ICD Code: F28 Brief History The patient is a 27-year-old man, domiciled his sister, unemployed, with psychiatric history of unspecified psychosis, and of his use disorder, 1 previous psychiatric hospitalization here at [facility] in November 2016 under the care of Dr. Montiel, documentation was reviewed, was discharged in [facility] and a plan for outpatient follow-up, but the patient did not follow-up and he did not take the medication, no previous suicidal attempts, no history of self cutting, he has family psychiatric history of bipolar in his mother and his schizophrenia and his grandmother, medical history of asthma, who was brought to the ER in [place] by his sister due to erratic and disorganized behavior in the last 2 days. As per collateral information obtained this morning form sister , Coral Morataya, , since the patient was discharged in November he decided to stop taking his medications stating that he was not himself on medications. In the last months patient has been partially functional in the society, isolated, acting odd at times, but mostly at baseline. However 2 days ago when she arrived home she found him walking inside the house and he stated that he was feeling very rare. She says that he was very confused, detached from the reality, he was not able to recognize her or to recognize the house and after that he has been talking nonsense, not sleeping, very erratic. She clarifies that he might smoke marijuana, but she is unaware if he is using other drugs, but she doesn't think so. On psychiatric evaluation the patient is found in the ER, his is sleeping, but easily arousable. Patient says that he is here because his family wants to kill him. He says that his brother-in- law is evil "he is of demon, but I am the reincarnation of Prince Bergman so we cannot live together". When patient is asked if he had used any drugs, he says "brother my drug is the Bible, I read the Bible 24 hours a day, because Prince Pacheco is the only salvation"and as he says this he starts crying. Patient also saying that the reason he is in the hospital "is because I have been , but nobody Know and I just want to confirm". During the evaluation patient often become agitated and loud, but he is verbally escalated. Other than pronounced loosening of associations, frequent derailment, and nihilistic delusions, he is visibly internally preoccupied and paranoid. He denies visual and auditory hallucinations, he denies suicidal and homicidal ideation. Patient is partially oriented in time and place. He reports almost daily use of marijuana, denies cocaine, alcohol, and other drugs. Tobacco Use In Past 30 Days: 4 or Less Cigarettes/Day Alcohol Use: 2-4 Times Per Month Hospital Course Patient seen today with counselor Rachel. Patient now denies suicidality, denies homicidality, denies voices or visions. 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 He also acknowledges his marijuana use. States he wishes it would legal second spoken every day. Today he says he does not want to take the Respinol anymore. He denies having a mental illness. Stating all he needs this is marijuana. In any event at this time patient does not meet [place] act criteria for involuntary psychiatric hospitalization. He is here on a voluntary basis and wishes to leave. Thus I will discharge her patient per his wishes. We will offer him a prescription for Respinol 1 mg twice a day #60 with a referral to [facility]. We'll also refer him the [facility] Results Blood Pressure 119 / 58 Vital Signs Date Time Temp Pulse Resp B/P Pulse Ox O2 Delivery O2 Flow Rate FiO2 06/15/17 06:05 98.0 83 16 119/58 97 06/12/17 07:00 Room Air Laboratory Tests Test 06/13/17 12:13 Triglycerides Level 226 MG/DL (42-150) HDL Cholesterol 37.8 MG/DL (40.0-60.0) Laboratory Results Test 06/13/17 12:13 Hemoglobin A1c 4.5 % (4.3-6.0) Triglycerides Level 226 MG/DL (42-150) Cholesterol Level 150 MG/DL (120-200) LDL Cholesterol 67 MG/DL (0-99) HDL Cholesterol 37.8 MG/DL (40.0-60.0) Summary of Procedures None done Pending results at discharge: No Medications # of Antipsychotic meds at D/C: 1 Approp Antipsych med options 1 - Minimum of three failed multiple trials of monotherapy. 2 - Documented plan to taper to monotherapy due to previous use of multiple meds OR cross-taper in progress at D/C. 3 - Documentation of augmentation of Clozapine. 4 - Justification other than those listed in allowable values 1-3, document here : Discharge Discharge Date: Jun 15, 2017 Discharge Diagnosis: (1) Other psychotic disorder not due to a substance or known physiological condition Diagnosis: Principal ICD Code: F28 Mental Status Exam at Disch Alert oriented somewhat irritable demanding manipulative white male, he is normoactive, his mood is irritable somewhat restricted with decreased range increase intensity of his affect. Speech rate and rhythm are slightly increased is somewhat tangential. There are no auditory or visual hallucinations noted is no delusions, though he shows very little insight into his disease. Cognition grossly intact Pt Condition on Discharge: Stable Discharge Disposition: Discharge Home Discharge Instructions Diet Instructions: As Tolerated, No Restrictions Activities you can perform: Regular-No Restrictions Scheduled Appointment: Hardik Brennan Discharge Time > 30 minutes Discharge/Advance Care Plan Health Problems: (1) Other psychotic disorder not due to a substance or known physiological condition Goals to promote your health * To prevent worsening of your condition and complications * To maintain your health at the optimal level Directions to meet your goals Take your medications as prescribed Follow your dietary instruction Follow activity as directed Keep your appointments as scheduled Take your immunizations and boosters as scheduled If your symptoms worsen call your PCP, if no PCP go to Urgent Care Center or Emergency Room For 14/06 questions related to your inpatient stay or results of tests pending at discharge, please contact Dr. Damon Hernandez at Smoking is Dangerous to Your Health. Avoid second hand smoking Damon Hernandez MD Jun 15, 2017 15:42
== END 2017-06-15 18:10 | disposition home or self-care (01) | DRG 885 ==
LOC: NEPD 02:25 → NEDA 07:45 → H4EA 09:30 → H260 06-13 15:35
PROVIDERS: ADMIT Psychiatry & Neurology Psychiatry; ATTEND Psychiatry & Neurology Psychiatry
DX: F28 Other psychotic disorder not due to a substance or known physiological condition (principal); E86.0 Dehydration; D72.829 Elevated white blood cell count, unspecified; F12.90 Cannabis use, unspecified, uncomplicated; Z81.8 Family history of other mental and behavioral disorders; Z82.5 Family history of asthma and other chronic lower respiratory diseases; Z59.0 Homelessness
CPT/HCPCS: 80048; 80053; 80061; 80307; 81001; 83036; 84443; 85025; 85027; 93005; J7030